=== PATIENT | male | born 1960 | race Caucasian/White ===

== ENCOUNTER → 2016-06-29 | Outpatient (CLI) | payer MEDICAID ==
--- NOTE | 2016-06-29 07:59 | CT ---
EXAMINATION TYPE: CT chest w con DATE OF EXAM: 06/29/2016 7:12 AM COMPARISON: NONE HISTORY: Abn CXR, back pain CT DLP: 438.9 mGycm Automated exposure control for dose reduction was used. CONTRAST: CT scan of the chest is performed with IV Contrast, patient injected with 100 ml mL of Omnipaque 300. FINDINGS: LUNGS: The lungs are grossly clear, there is no concerning parenchymal mass or nodule identified. T here is no pleural effusion or pneumothorax seen. The tracheobronchial tree is patent. MEDIASTINUM: There are no greater than 1 cm hilar or mediastinal lymph nodes. No pericardial effusi on is seen. Thoracic aorta is of normal caliber. The heart is mildly enlarged. UPPER ABDOMEN: Mild fatty hepatic infiltration. Small sliding-type hiatal hernia. OTHER: Degenerative disc space narrowing and spondylosis throughout the thoracic spine. IMPRESSION: 1. No significant abnormality of the chest.
== END | disposition home or self-care (01) ==
LOC: RADCTMAIN 06:49
PROVIDERS: ATTEND Family Medicine
DX: R22.2 Localized swelling, mass and lump, trunk (principal)
CPT/HCPCS: 71260; Q9967

== ENCOUNTER → 2017-05-25 | Outpatient (CLI) | payer MEDICAID ==
--- NOTE | 2017-05-25 15:36 | ECHOS ---
STRESS ECHOCARDIOGRAM INDICATIONS: Atrial fibrillation. MEDICATIONS: Amlodipine, Xarelto, lisinopril, Synthroid, atorvastatin. BASELINE HEART RATE: 122 BASELINE BLOOD PRESSURE: 133/57 MAXIMUM HEART RATE: 164 MAXIMUM BLOOD PRESSURE: 159/71 85% MPHR: 139 100% MPHR: 164 METS: 7.0 MAXIMUM STAGE REACHED: 2 TOTAL EXERCISE TIME: 5:00 CLINICAL INFORMATION: STRESS DATA: Pretesting physical examination showed a heart rate of 122, pressure is 132/7 mmHg. Baseline EKG showed sinus mechanism. The baseline EKG showed slight A. fib. The patient exercised on the treadmill according to Ned protocol for a total of 5 minutes and achieved 7.0 METS. Max heart rate was 164, which is about 100% of maximum predicted heart rate. Maximum blood pressure was 159/71 mmHg. Clinically the patient did not have any symptoms of chest pain or discomfort and the EKG did not show any significant ST or T-wave abnormalities. Echocardiogram images from parasternal long axis view, parasternal short axis view, apical 4 chamber view and apical 2 chamber view were obtained as the baseline images, at the peak of the heart rate, as well as on recovery. The echocardiogram images showed good augmentation in the left ventricular systolic function without any evidence of wall motion abnormalities consistent with ischemia. CONCLUSION: 1. Average exercise capacity. 2. No significant ST or T-wave abnormalities in response to exercise by EKG. 3. Normal echocardiogram in response to exercise. MMODL / IJN: [id number] /
== END | disposition home or self-care (01) ==
LOC: RADNMMAIN 09:04
PROVIDERS: ATTEND Family Medicine
DX: I48.91 Unspecified atrial fibrillation (principal)
CPT/HCPCS: 93350; 93017; Q9950

== ENCOUNTER → 2017-09-01 | Outpatient (CLI) | payer MEDICAID ==
--- NOTE | 2017-09-01 16:17 | MR ---
EXAMINATION TYPE: MR angio head wo con DATE OF EXAM: 09/01/2017 COMPARISON: NONE HISTORY: Strabismus, left sided facial weakness/numbness TECHNIQUE: Time of flight images focusing on the [place] were performed without contrast.. 2-D and 3-D postprocessing imaging is performed. FINDINGS: There is codominant vertebral basilar system. There is no significant focal stenosis or ane urysmal change in the posterior circulation. Hypoplastic posterior communicating arteries are noted b ilaterally. Images of the anterior circulation show patent anterior communicating artery. There is no significant focal stenosis or aneurysmal change seen. IMPRESSION: No significant focal stenosis or aneurysmal change at level of [place].
== END | disposition home or self-care (01) ==
LOC: RADMRIMAIN 14:40
PROVIDERS: ATTEND Family Medicine
DX: H50.9 Unspecified strabismus (principal); R29.810 Facial weakness
CPT/HCPCS: 70544

== ENCOUNTER → 2017-09-11 | Outpatient (CLI) | payer MEDICAID ==
--- NOTE | 2017-09-11 14:37 | US ---
EXAMINATION TYPE: US carotid duplex BILAT DATE OF EXAM: 09/11/2017 COMPARISON:MR angio head CLINICAL HISTORY: H50.9 Strabismus , R29.810 Facial weakness; left facial weakness and drooping, with garbled speech, symptoms are lessening from 2 weeks ago; HTN EXAM MEASUREMENTS: RIGHT: Peak Systolic Velocity (PSV) cm/sec ----- Right CCA: 109.9 ----- Right ICA: 74.5 ----- Right ECA: 96.5 ICA/CCA ratio: 0.7 RIGHT: End Diastole cm/sec ----- Right CCA: 32.1 ----- Right ICA: 17.2 ----- Right ECA: 16.1 LEFT: Peak Systolic Velocity (PSV) cm/sec ----- Left CCA: 110.9 ----- Left ICA: 64.5 ----- Left ECA: 113.5 ICA/CCA ratio: 0.6 LEFT: End Diastole cm/sec ----- Left CCA: 31.7 ----- Left ICA: 10.6 ----- Left ECA: 13.7 VERTEBRALS (direction of flow): Right Vertebral: Antegrade Left Vertebral: Antegrade Rhythm: Arrhythmia Mild intimal wall changes are noted at bilateral carotid bifurcation and PSV is wnl bilaterally. IMPRESSION: 1. Intimal mild wall changes with no significant hemodynamic stenosis. Criteria for Assigning % of Stenosis / Diameter reduction (Estimation based on the indirect measurements of the internal carotid artery velocities (ICA PSV). 1. Normal (no stenosis)=ICA PSV < 125 cm/s: ratio < 2.0: ICA EDV<40 cm/s. 2. Less than 50% stenosis=ICA PSV < 125 cm/s: ratio < 2.0: ICA EDV<40 cm/s. 3. 50 to 69% stenosis=ICA PSV of 125 to 230 cm/s: ration 2.0 ? 4.0: ICA EDV 40-100 cm/s. 4. Greater than 70% stenosis to near occlusion= ICA PSV > 230 cm/s: ratio > 4.0: ICA EDV > 100 cm/s. 5. Near occlusion= ICA PSV velocities may be low or undetectable: variable ratio and ICA EDV. 6. Total occlusion=unable to detect flow.
--- NOTE | 2017-09-12 12:42 | ECHOF ---
Referral Reason:H50.9 Strabismus , R29.810 Facial weakness MEASUREMENTS -------- HEIGHT: 188.0 cm WEIGHT: 113.4 kg BP: RVIDd: 3.0 cm (< 3.3) IVSd: 1.1 cm (0.6 - 1.1) LVIDd: 4.0 cm (3.9 - 5.3) LVPWd: 1.2 cm (0.6 - 1.1) IVSs: 1.4 cm LVIDs: 3.5 cm LVPWs: 1.3 cm LA Diam: 3.1 cm (2.7 - 3.8) Ao Diam: 3.3 cm (2.0 - 3.7) AV Cusp: 2.0 cm (1.5 - 2.6) LA Diam: 3.5 cm (2.7 - 3.8) MV EXCURSION: 19.783 mm (> 18.000) MV EF SLOPE: 105 mm/s (70 - 150) EPSS: 0.6 cm MV E Blair: 0.77 m/s MV DecT: 234 ms MV A Blair: 0.33 m/s MV E/A Ratio: 2.35 RAP: 5.00 mmHg RVSP: 35.21 mmHg FINDINGS -------- Sinus rhythm. This was a technically adequate study. The left ventricular size is normal. There is borderline concentric left ventricular hypertrophy. Overall left ventricular systolic function is normal with, an EF between 55 - 60 %. The right ventricle is normal in size. The left atrial size is normal. The right atrium is mildly enlarged. The aortic valve is trileaflet and appears structurally normal. The mitral valve leaflets are mildly thickened. Mild mitral regurgitation is present. Mild tricuspid regurgitation present. There is mild pulmonary hypertension. The right ventricular systolic pressure, as measured by Doppler, is 35.21mmHg. There is no pulmonic regurgitation present. The aortic root size is normal. There is no pericardial effusion. CONCLUSIONS -------- 1. Sinus rhythm. 2. The left ventricular size is normal. 3. There is borderline concentric left ventricular hypertrophy. 4. Overall left ventricular systolic function is normal with, an EF between 55 - 60 %. 5. The left atrial size is normal. 6. The right atrium is mildly enlarged. 7. The aortic valve is trileaflet and appears structurally normal. 8. The mitral valve leaflets are mildly thickened. 9. Mild mitral regurgitation is present. 10. Mild tricuspid regurgitation present. 11. There is mild pulmonary hypertension. 12. There is no pulmonic regurgitation present. 13. The aortic root size is normal. 14. There is no pericardial effusion. MOTHER HELPER: Micaela Sotelo RDCS
== END | disposition home or self-care (01) ==
LOC: RADUSMAIN 13:24
PROVIDERS: ATTEND Family Medicine
DX: I08.1 Rheumatic disorders of both mitral and tricuspid valves (principal); H50.9 Unspecified strabismus; R29.810 Facial weakness
CPT/HCPCS: 93306; 93880

== ENCOUNTER → 2017-09-20 | Outpatient (CLI) | payer MEDICAID ==
--- NOTE | 2017-09-20 19:59 | MR ---
EXAMINATION TYPE: MR brain wo con DATE OF EXAM: 09/20/2017 6:06 PM COMPARISON: NONE HISTORY: Left side facial numbness FINDINGS: The ventricles, basal cisterns and sulci overlying the cerebral convexities are minimally enlarged. There is evidence of minimal periventricular white matter ischemic demyelination. Remote deep white matter insults are also noted. No acute edema is seen on diffusion weighted imaging. There is no evidence for midline shift or mass effect. Acute intracranial hemorrhage or extra-axial collection is not evident. The paranasal sinuses and mastoid air cells are well-aerated. IMPRESSION: Age-related atrophic and chronic small vessel ischemic change. No acute intracranial process at this time.
== END | disposition home or self-care (01) ==
LOC: RADMRIMAIN 17:30
PROVIDERS: ATTEND Psychiatry & Neurology Neurology
DX: G31.9 Degenerative disease of nervous system, unspecified (principal); I67.82 Cerebral ischemia
CPT/HCPCS: 70551

== ENCOUNTER → 2019-09-10 | Outpatient (CLI) | payer MEDICAID | END | disposition home or self-care (01) | LOC: LABWHC1 07:24 | PROVIDERS: ATTEND Pediatrics Pediatric Infectious Diseases | DX: U07.1 COVID-19 (principal) | CPT/HCPCS: 87635 ==

== ENCOUNTER → 2020-02-14 | Outpatient (CLI) | payer MEDICAID | END | disposition home or self-care (01) | LOC: LABWHC1 08:43 | PROVIDERS: ATTEND Family Medicine | DX: Z03.818 Encounter for observation for suspected exposure to other biological agents ruled out (principal); Z20.828 Contact with and (suspected) exposure to other viral communicable diseases | CPT/HCPCS: U0003; C9803 ==